=== PATIENT | female | born 1950 | race Caucasian/White ===

== ENCOUNTER → 2019-01-16 | Outpatient (CLI) | payer MEDICARE | END | disposition home or self-care (01) | LOC: RAH 16:19 | PROVIDERS: ATTEND Nurse Practitioner Family | DX: M11.262 Other chondrocalcinosis, left knee (principal); M25.462 Effusion, left knee; M25.862 Other specified joint disorders, left knee; M17.12 Unilateral primary osteoarthritis, left knee | CPT/HCPCS: 73562 ==